=== PATIENT | male | born 1995 | race Caucasian/White ===

== ENCOUNTER 2024-01-02 18:22 | Emergency (ER) | payer BC, OTHER ==
[~2024-01-02] VITALS: Ht 185.4 cm; Wt 110.9 kg
[2024-01-02] MEDS: LIDOCAINE 1% HCL (LOCAL ANESTH.) INJ 20ML MDV IJ ONE (19:57)
[2024-01-02 21:09] VITALS: BP 132/84; PULSE 89; RESP 16; TEMP 98.6; O2SAT 100
== END 2024-01-02 21:09 | disposition home or self-care (01) ==
LOC: ER 18:22
DX: S61.411A Laceration without foreign body of right hand, initial encounter (principal); W45.8XXA Other foreign body or object entering through skin, initial encounter; Y93.89 Activity, other specified; Y92.89 Other specified places as the place of occurrence of the external cause; Y99.8 Other external cause status
CPT/HCPCS: 12002; 99282; J2001